=== PATIENT | male | born 1970 | race American Indian/Alaskan Native ===

== ENCOUNTER 2017-10-12 10:54 | Emergency (ER) | payer MEDICAID ==
[2017-10-12 11:00] VITALS: BP 168/102
--- NOTE | 2017-10-12 12:19 | Emergency Department Report ---
ED Medical Clearance HPI - General Chief complaint: Medical Clearance Stated complaint: HYPERTENSION Time Seen by Provider: 10/12/17 12:12 Source: patient Mode of arrival: Ambulatory - History of Present Illness Initial comments: 46-year-old male past medical history hypertension presents for medication refill. Patient states he ran out of his amlodipine a week ago. Patient is awake alert and oriented 3 fully lucid nontoxic-appearing. Denies any chest pain palpitations shortness of breath headache blurry vision abdominal pain nausea vomiting up her lower extremity paresthesias headache. Patient states he also has small bumpy rash on the left anterior macdonald. Has had it for several weeks. Denies any fevers chills or trauma to area. MD Complaint: medical clearance request Onset/Timin -: week(s) Place: home Treatments Prior to Arrival: medication Home medications: Previous Rx's Medication Instructions Recorded Last Taken Type Mupirocin [Bactroban 2% CREAM] 1 applicatio TP TID #1 cream 10/12/17 Unknown Rx amLODIPine [Norvasc] 10 mg PO DAILY #30 tab 10/12/17 Unknown Rx Allergies/Adverse reactions: Allergies Allergy/AdvReac Type Severity Reaction Status Date / Time olanzapine [From Zyprexa] AdvReac Unknown Verified 10/12/17 11:01 risperidone [From Risperdal] AdvReac Unknown Verified 10/12/17 11:00 ziprasidone [From Geodon] AdvReac Unknown Verified 10/12/17 11:00 ED Review of Systems ROS: Stated complaint: HYPERTENSION Other details as noted in HPI Constitutional: denies: chills, fever Eyes: denies: eye pain, eye discharge, vision change ENT: denies: ear pain, throat pain Respiratory: denies: cough, shortness of breath, wheezing Cardiovascular: denies: chest pain, palpitations Endocrine: no symptoms reported Gastrointestinal: denies: abdominal pain, nausea, diarrhea Genitourinary: denies: urgency, dysuria Musculoskeletal: denies: back pain, joint swelling, arthralgia Skin: as per HPI, rash. denies: lesions Neurological: denies: headache, weakness, paresthesias Psychiatric: denies: anxiety, depression Hematological/Lymphatic: denies: easy bleeding, easy bruising ED Past Medical Hx - Past Medical History Hx Hypertension: Yes - Surgical History Past Surgical History?: No - Social History Smoking Status: Former Smoker - Medications Home Medications: Home Medications Medication Instructions Recorded Confirmed Last Taken Type Mupirocin [Bactroban 2% CREAM] 1 applicatio TP TID #1 cream 10/12/17 Unknown Rx amLODIPine [Norvasc] 10 mg PO DAILY #30 tab 10/12/17 Unknown Rx ED Physical Exam - General Limitations: No Limitations General appearance: alert, in no apparent distress - Head Head exam: Present: atraumatic, normocephalic - Eye Eye exam: Present: normal appearance, PERRL, EOMI - ENT ENT exam: Present: mucous membranes moist - Neck Neck exam: Present: normal inspection - Respiratory Respiratory exam: Present: normal lung sounds bilaterally. Absent: respiratory distress - Cardiovascular Cardiovascular Exam: Present: regular rate, normal rhythm. Absent: systolic murmur, diastolic murmur, rubs, gallop - GI/Abdominal GI/Abdominal exam: Present: soft, normal bowel sounds - Rectal Rectal exam: Present: deferred - Extremities Exam Extremities exam: Present: normal inspection - Back Exam Back exam: Present: normal inspection - Neurological Exam Neurological exam: Present: alert, oriented X3 - Psychiatric Psychiatric exam: Present: normal affect, normal mood - Skin Skin exam: Present: warm, dry, intact, normal color. Absent: rash - Expanded Skin Exam Expanded Description of rash: Present: papular (small area of folliculitis left anterior macdonald erythema cellulitis or abscess. Area 2 cm) ED Course Vital Signs 10/12/17 10:57 Temperature 98.2 F Pulse Rate 62 Respiratory 16 Rate Blood Pressure 168/102 O2 Sat by Pulse 98 Oximetry ED Medical Decision Making - Medical Decision Making A/P: Medication refill, folliculitis 1-refill on amlodipine. I stressed to the patient that he needs to follow up with primary care. Patient states he has insurance but has not made that time to follow up with primary care doctor. Patient is asymptomatic with no signs or history suggestive of of hypertensive urgency/emergency at this time 2-topical [facility] since a small area of folliculitis left anterior macdonald 3-follow up with PMD 4- as per ACEP guidelines pt has no sx's no futher intervention necessary at this time ED Disposition Clinical Impression: Asymptomatic hypertension, Folliculitis Disposition: TO HOME OR SELFCARE Is pt being admited?: No Does the pt Need Aspirin: No Condition: Stable Instructions: Hypertension (ED), Folliculitis (ED) Prescriptions: amLODIPine [Norvasc] 10 mg PO DAILY #30 tab Mupirocin [Bactroban 2% CREAM] 1 applicatio TP TID #1 cream Referrals: [facility] [Provider Group] - 3-5 Days [facility] [Outside] - 3-5 Days Time of Disposition: 12:20
== END 2017-10-12 12:29 | disposition home or self-care (01) ==
LOC: ED 10:54
DX: L73.9 Follicular disorder, unspecified (principal); I10 Essential (primary) hypertension
CPT/HCPCS: 99281

== ENCOUNTER 2018-05-17 00:31 | Emergency (ER) | payer MEDICAID ==
[2018-05-17 01:29] VITALS: BP 157/97
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
== END 2018-05-17 04:00 | disposition home or self-care (01) ==
LOC: ED 00:31
DX: K21.9 Gastro-esophageal reflux disease without esophagitis (principal); M79.674 Pain in right toe(s); I10 Essential (primary) hypertension; F20.9 Schizophrenia, unspecified; F17.200 Nicotine dependence, unspecified, uncomplicated; Z76.0 Encounter for issue of repeat prescription; Z88.2 Allergy status to sulfonamides; Z88.8 Allergy status to other drugs, medicaments and biological substances
CPT/HCPCS: 99281

== ENCOUNTER 2018-05-27 05:24 | Emergency (ER) | payer MEDICAID | END 2018-05-27 05:30 | disposition left against medical advice (07) | LOC: ED 05:24 ==

== ENCOUNTER 2018-05-31 03:13 | Emergency (ER) | payer MEDICAID | END 2018-05-31 09:03 | LOC: ED 03:13 | DX: Z53.21 Procedure and treatment not carried out due to patient leaving prior to being seen by health care provider (principal) ==

== ENCOUNTER 2018-06-06 00:09 | Emergency (ER) | payer MEDICAID ==
[2018-06-06 00:16] VITALS: BP 159/96
[2018-06-06 00:35] LABS: Bilirubin,Urine NEG (Negative); Blood,Urine NEG (Negative); Color,Urine Yellow (Yellow); Protein,Urine <15 mg/dL mg/dL (Negative); WBC,Urine < 1.0 /HPF (0.0-6.0)
--- NOTE | 2018-06-06 01:17 | Emergency Department Report ---
ED General Adult HPI - General Chief complaint: Pain General Stated complaint: PEE A LOT Time Seen by Provider: 06/06/18 01:10 Source: patient Mode of arrival: Ambulatory Limitations: No Limitations - History of Present Illness Initial comments: 47-year-old male that comes in chronically for right great toe pain. Patient reports that his throat pain is worse when he walks but admits that he walks constantly throughout the day. Patient also comes in reporting that he needs a refill on his medication. Patient reports that he is pain a lot. Patient reports that he was followed up by urology but comes in because he has ran out of his stitch for pain. Improves with: rest Worsens with: other ( walking) - Related Data Previous Rx's Medication Instructions Recorded Last Taken Type Mupirocin [Bactroban 2% CREAM] 1 applicatio TP TID #1 cream 10/12/17 Unknown Rx Mupirocin [Bactroban 2% OINT] 1 applic TP TID #1 tube 10/12/17 Unknown Rx amLODIPine [Norvasc] 10 mg PO DAILY #30 tab 10/12/17 Unknown Rx Ibuprofen [Motrin] 400 mg PO Q8H #20 tablet 05/09/18 Unknown Rx Omeprazole 40 mg PO DAILY #30 capsule.dr 05/17/18 Unknown Rx Ketorolac [Toradol] 10 mg PO Q6H PRN #20 tablet 06/06/18 Unknown Rx Oxybutynin Chloride [Ditropan Xl] 5 mg PO DAILY #30 tab.er.24 06/06/18 Unknown Rx Allergies Allergy/AdvReac Type Severity Reaction Status Date / Time amlodipine [From Norvasc] Allergy Unknown Verified 06/06/18 00:14 olanzapine [From Zyprexa] AdvReac Unknown Verified 05/18/18 00:47 risperidone [From Risperdal] AdvReac Unknown Verified 05/18/18 00:47 ziprasidone [From Geodon] AdvReac Unknown Verified 05/18/18 00:47 ED Review of Systems ROS: Stated complaint: PEE A LOT Other details as noted in HPI ED Past Medical Hx - Past Medical History Previous Medical History?: Yes Hx Hypertension: Yes (medication controlled) Hx Psychiatric Treatment: (denies schizophrenia) - Surgical History Past Surgical History?: Yes Additional Surgical History: right knee - Social History Smoking Status: Current Every Day Smoker - Medications Home Medications: Home Medications Medication Instructions Recorded Confirmed Last Taken Type Mupirocin [Bactroban 2% CREAM] 1 applicatio TP TID #1 cream 10/12/17 Unknown Rx Mupirocin [Bactroban 2% OINT] 1 applic TP TID #1 tube 10/12/17 Unknown Rx amLODIPine [Norvasc] 10 mg PO DAILY #30 tab 10/12/17 Unknown Rx Ibuprofen [Motrin] 400 mg PO Q8H #20 tablet 05/09/18 Unknown Rx Omeprazole 40 mg PO DAILY #30 capsule.dr 05/17/18 Unknown Rx Ketorolac [Toradol] 10 mg PO Q6H PRN #20 tablet 06/06/18 Unknown Rx Oxybutynin Chloride [Ditropan Xl] 5 mg PO DAILY #30 tab.er.24 06/06/18 Unknown Rx ED Physical Exam - General Limitations: No Limitations General appearance: alert, in no apparent distress - Head Head exam: Present: atraumatic, normocephalic - ENT ENT exam: Present: mucous membranes moist - Neurological Exam Neurological exam: Present: alert, oriented X3 - Psychiatric Psychiatric exam: Present: normal affect, normal mood - Skin Skin exam: Present: warm, dry, intact. Absent: rash ED Course Vital Signs 06/06/18 00:13 Temperature 97.8 F Pulse Rate 81 Respiratory 18 Rate Blood Pressure 159/96 O2 Sat by Pulse 98 Oximetry ED Medical Decision Making - Medical Decision Making Patient has been evaluated by this provider in fast track. Patient be refilled on his digits or pain referred back to his urologist for future evaluations and refills. Refill patient's medication for his pain with Toradol 10 mg. I discussed the patient if he keeps on walking on his feet constantly is going to continue to have pain. She verbalized understanding Critical care attestation.: If time is entered above; I have spent that time in minutes in the direct care of this critically ill patient, excluding procedure time. ED Disposition Clinical Impression: Urinary frequency Disposition: DC-01 TO HOME OR SELFCARE Is pt being admited?: No Does the pt Need Aspirin: No Condition: Stable Additional Instructions: Please take medication as prescribed. Please follow-up with your urologist for further refills evaluation. Prescriptions: Ketorolac [Toradol] 10 mg PO Q6H PRN #20 tablet PRN Reason: Pain Oxybutynin Chloride [Ditropan Xl] 5 mg PO DAILY #30 tab.er.24 Referrals: GREGG ADAMS MD [Primary Care Provider] - 3-5 Days AMELIA WOLFF MD [Staff Physician] - 3-5 Days
== END 2018-06-06 01:30 | disposition home or self-care (01) ==
LOC: ED 00:09
DX: R35.0 Frequency of micturition (principal); I10 Essential (primary) hypertension; F17.200 Nicotine dependence, unspecified, uncomplicated; Z88.8 Allergy status to other drugs, medicaments and biological substances
CPT/HCPCS: 81001; 99283

== ENCOUNTER 2018-06-06 19:40 | Emergency (ER) | payer MEDICAID ==
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
== END 2018-06-07 00:35 | disposition home or self-care (01) ==
LOC: ED 19:40

== ENCOUNTER 2018-06-14 21:29 | Emergency (ER) | payer MEDICAID ==
--- NOTE | 2018-06-14 22:01 | Emergency Department Report ---
Chief Complaint: Upper Respiratory Infection Stated Complaint: MED REFILL Time Seen by Provider: 06/14/18 22:00 - HPI History of Present Illness: Patient here reported that he had cough for 2 months after smoking marijuana. Denies any nasal congestion or runny nose is thick cough is nonproductive. Denies any shortness of breath or chest pain. Denies any headache or neck pain. 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 Pain is 0-10. Denies any fever or chills or nausea or vomiting. - ROS Review of Systems: Positive requests for sack lunch, positive request a Band-Aid without any injuries. Negative shortness of breath, negative chest pain, negative fever or chills. Pain 0/10. Denies cough and but reports to triage nurse that he was coughing for 2 months. Negative headache, sore throats. Negative back or neck pain or. Negative abdominal pain - Exam Vital Signs: Vital Signs 06/14/18 21:34 Temperature 97.7 F Pulse Rate 87 Respiratory 16 Rate Blood Pressure 127/95 O2 Sat by Pulse 100 Oximetry Physical Exam: Gen.: This is a 47-year-old male well-nourished well-developed in no acute distress. CV: S1, S2. Regular rate and rhythm negative murmur Lungs: Clear to auscultate bilaterally, no rhonchi wheezes or rales. Skin: Clean, Dry and intact and no rash no lesions EXT: No C/C/E + 2 pulses MSE screening note: Focused history and physical exam performed. Due to findings the following was ordered: Patient's deemed to be not medical emergent and was screening doubts and given outpatient resources for follow-up. He said all he wants is a sack lunch and a Band-Aid. I discussed with him that this is not a medical emergency and he was DC'd from emergency room. Patient discussed with doctor:: SANDEEP STRICKLAND ED Medical Decision Making - Medical Decision Making This is a 47-year-old male who comes to the emergency room accident for Band-Aid and sack lunch. He told triage nurse that he had a cough which was nonproductive 2 months but when he came back and I was interviewing him he said he is here for about lunch and Band-Aid. I discussed the patient that this is not a medical emergency and gave him community resources to access. Discharged from emergency room. Patient vital signs stable and is afebrile and in no acute distress. ED Disposition for MSE Clinical Impression: Normal exam Disposition: MED SCREENING EXAM-LEFT Is pt being admited?: No Does the pt Need Aspirin: No Condition: Stable Referrals: SID THAKKAR DO [Primary Care Provider] - 3-5 Days
== END 2018-06-14 22:12 | disposition left against medical advice (07) ==
LOC: ED 21:29
CPT/HCPCS: 99281

== ENCOUNTER 2018-06-17 06:57 | Emergency (ER) | payer MEDICAID ==
--- NOTE | 2018-06-17 07:54 | Emergency Department Report ---
ED Lower Extremity HPI - General Chief Complaint: Extremity Problem,Nontraumatic Stated Complaint: RT FOOT SORE TOE Source: patient Mode of arrival: Ambulatory Limitations: No Limitations - Related Data Previous Rx's Medication Instructions Recorded Last Taken Type Mupirocin [Bactroban 2% CREAM] 1 applicatio TP TID #1 cream 10/12/17 Unknown Rx Mupirocin [Bactroban 2% OINT] 1 applic TP TID #1 tube 10/12/17 Unknown Rx amLODIPine [Norvasc] 10 mg PO DAILY #30 tab 10/12/17 Unknown Rx Ibuprofen [Motrin] 400 mg PO Q8H #20 tablet 05/09/18 Unknown Rx Omeprazole 40 mg PO DAILY #30 capsule.dr 05/17/18 Unknown Rx Ketorolac [Toradol] 10 mg PO Q6H PRN #20 tablet 06/06/18 Unknown Rx Oxybutynin Chloride [Ditropan Xl] 5 mg PO DAILY #30 tab.er.24 06/06/18 Unknown Rx Allergies Allergy/AdvReac Type Severity Reaction Status Date / Time amlodipine [From Norvasc] Allergy Unknown Verified 06/06/18 00:14 olanzapine [From Zyprexa] AdvReac Unknown Verified 05/18/18 00:47 risperidone [From Risperdal] AdvReac Unknown Verified 05/18/18 00:47 ziprasidone [From Geodon] AdvReac Unknown Verified 05/18/18 00:47 ED Review of Systems ROS: Stated complaint: RT FOOT SORE TOE Other details as noted in HPI ED Past Medical Hx - Past Medical History Previous Medical History?: Yes Hx Hypertension: Yes (medication controlled) Hx Psychiatric Treatment: (denies schizophrenia) - Surgical History Past Surgical History?: Yes Additional Surgical History: right knee - Social History Smoking Status: Current Every Day Smoker Substance Use Type: Alcohol, Marijuana - Medications Home Medications: Home Medications Medication Instructions Recorded Confirmed Last Taken Type Mupirocin [Bactroban 2% CREAM] 1 applicatio TP TID #1 cream 10/12/17 Unknown Rx Mupirocin [Bactroban 2% OINT] 1 applic TP TID #1 tube 10/12/17 Unknown Rx amLODIPine [Norvasc] 10 mg PO DAILY #30 tab 10/12/17 Unknown Rx Ibuprofen [Motrin] 400 mg PO Q8H #20 tablet 05/09/18 Unknown Rx Omeprazole 40 mg PO DAILY #30 capsule. 05/17/18 Unknown Rx Ketorolac [Toradol] 10 mg PO Q6H PRN #20 tablet 06/06/18 Unknown Rx Oxybutynin Chloride [Ditropan Xl] 5 mg PO DAILY #30 tab.er.24 06/06/18 Unknown Rx ED Physical Exam - General Limitations: No Limitations ED Course Vital Signs 06/17/18 07:15 Temperature 98.6 F Pulse Rate 69 Respiratory 18 Rate Blood Pressure 140/97 O2 Sat by Pulse 99 Oximetry Critical care attestation.: If time is entered above; I have spent that time in minutes in the direct care of this critically ill patient, excluding procedure time. ED Disposition Clinical Impression: Normal exam, Pain around toenail, right foot Disposition: DC-01 TO HOME OR SELFCARE Is pt being admited?: No Does the pt Need Aspirin: No Condition: Stable Referrals: CALIN BARAHONA [Primary Care Provider] - 3-5 Days Time of Disposition: 07:54
--- NOTE | 2018-06-17 07:56 | Emergency Department Report ---
Chief Complaint: Extremity Problem,Nontraumatic Stated Complaint: RT FOOT SORE TOE - HPI History of Present Illness: This is a 47-year-old -Russian male who presents to the emergency room for a band aid for right great toe. Patient states he come to the emergency room frequently for toe pain. Patient states his toenails are rubbing against the top of his shoe and caused some pain. He can't afford to purchase Band-Aids so he comes to the emergency room for assistance. He reports pain is worse with walking. He does not have transportation and walks quite frequently. Patient denies recent injury. Patient was seen a few weeks here in this emergency room with similar complaint. - ROS Review of Systems: Right toe pain right first toenail pain. - Exam Vital Signs: Vital Signs 06/17/18 07:15 Temperature 98.6 F Pulse Rate 69 Respiratory 18 Rate Blood Pressure 140/97 O2 Sat by Pulse 99 Oximetry Physical Exam: Alert and oriented. Normal gait. Extremity: right 1st toe nail is dark, thick, and brittle, no erythema or edema. MSE screening note: Focused history and physical exam performed. Due to findings the following was ordered: Patient had a medical screening exam. Discussed options of where to purchase Band-Aids. Instructed to follow-up with primary care provider. ED Disposition for MSE Clinical Impression: Normal exam, Pain around toenail, right foot Disposition: - TO HOME OR SELFCARE Condition: Stable Referrals: CALIN BARAHONA [Primary Care Provider] - 3-5 Days
== END 2018-06-17 07:58 | disposition home or self-care (01) ==
LOC: ED 06:57
DX: M79.674 Pain in right toe(s) (principal)
CPT/HCPCS: 99282

== ENCOUNTER 2018-06-20 04:47 | Emergency (ER) | payer MEDICAID ==
[2018-06-20] MEDS ORDERED: ASPIRIN PO ONE (05:04)
[2018-06-20 05:28] LABS: Basophils % (Auto) 0.7 % (0.0-1.8); Eosinophils # (Auto) 0.3 K/mm3 (0.0-0.4); Eosinophils % (Auto) 5.3 % (0.0-4.3); Hematocrit 48.6 % (35.5-45.6); Hemoglobin 16.4 gm/dl (11.8-15.2); Lymphocytes # (Auto) 1.5 K/mm3 (1.2-5.4); Lymphocytes % (Auto) 30.6 % (13.4-35.0); Mean Corpuscular HGB Conc 34 % (32-34); Mean Corpuscular Volume 90 fl (84-94); Monocytes # (Auto) 0.6 K/mm3 (0.0-0.8); Platelet Count 249 K/mm3 (140-440); Red Blood Count 5.39 M/mm3 (3.65-5.03); Red Cell Distribution Width 13.8 % (13.2-15.2)
[2018-06-20 05:46] LABS: BUN/Creatinine Ratio 10; Blood Urea Nitrogen 11 mg/dL (9-20); Calcium 8.6 mg/dL (8.4-10.2); Hemolysis Index 20
--- NOTE | 2018-06-20 06:53 | Emergency Department Report ---
ED General Adult HPI - General Chief complaint: Chest Pain Stated complaint: HBP MEDICATION Time Seen by Provider: 06/20/18 05:44 Source: patient Mode of arrival: Ambulatory Limitations: No Limitations - History of Present Illness Initial comments: 47-year-old -Q[place] male has medical history of hypertension which the reports been noncompliant for the past 3-4 days presents to the emergency department of a rash to his right and left lower extremity which she states she's had for several months as been waxing and waning with utilization of some medicated ointment. He's been unable to maintain. The rash is pruritic in nature without associated fever, chills, sweats. Does also admits to smoking some weed tonight and after doing so, he developed a cough which makes him having some sharp pains in his left chest, primarily with deep breath and coughing spells. Denies any shortness of breath, presyncope, nausea, vomiting, diarrhea, coryza, but has had some yellowish mucus production with this cough. Radiation: non-radiation Quality: aching, sharp Consistency: intermittent Improves with: none Worsens with: other (coughing spells) Associated Symptoms: cough. denies: confusion, shortness of breath, syncope, weakness - Related Data Previous Rx's Medication Instructions Recorded Last Taken Type Mupirocin [Bactroban 2% CREAM] 1 applicatio TP TID #1 cream 10/12/17 Unknown Rx Mupirocin [Bactroban 2% OINT] 1 applic TP TID #1 tube 10/12/17 Unknown Rx amLODIPine [Norvasc] 10 mg PO DAILY #30 tab 10/12/17 Unknown Rx Ibuprofen [Motrin] 400 mg PO Q8H #20 tablet 05/09/18 Unknown Rx Omeprazole 40 mg PO DAILY #30 capsule.dr 05/17/18 Unknown Rx Ketorolac [Toradol] 10 mg PO Q6H PRN #20 tablet 06/06/18 Unknown Rx Oxybutynin Chloride [Ditropan Xl] 5 mg PO DAILY #30 tab.er.24 06/06/18 Unknown Rx Mometasone Furoate [Elocon] 45 gm TP BID #1 cream..g. 06/20/18 Unknown Rx hydrOXYzine HCL [Atarax] 25 mg PO Q6HR PRN #20 tablet 06/20/18 Unknown Rx Allergies Allergy/AdvReac Type Severity Reaction Status Date / Time olanzapine [From Zyprexa] AdvReac Unknown Verified 05/18/18 00:47 risperidone [From Risperdal] AdvReac Unknown Verified 05/18/18 00:47 ziprasidone [From Geodon] AdvReac Unknown Verified 05/18/18 00:47 ED Review of Systems ROS: Stated complaint: HBP MEDICATION Other details as noted in HPI Constitutional: denies: chills, fever Eyes: denies: eye pain, eye discharge, vision change ENT: denies: ear pain, throat pain Respiratory: cough. denies: shortness of breath, wheezing Cardiovascular: denies: palpitations, dyspnea on exertion, orthopnea, syncope, paroxysmal nocturnal dyspnea Endocrine: no symptoms reported Gastrointestinal: denies: abdominal pain, nausea, diarrhea Genitourinary: denies: urgency, dysuria Musculoskeletal: denies: back pain, joint swelling, arthralgia Skin: rash. denies: lesions Neurological: denies: headache, weakness, paresthesias Psychiatric: denies: anxiety, depression Hematological/Lymphatic: denies: easy bleeding, easy bruising ED Past Medical Hx - Past Medical History Previous Medical History?: Yes Hx Hypertension: Yes (medication controlled) Hx Psychiatric Treatment: (denies schizophrenia) - Surgical History Past Surgical History?: Yes Additional Surgical History: right knee - Social History Smoking Status: Current Every Day Smoker Substance Use Type: Alcohol, Marijuana - Medications Home Medications: Home Medications Medication Instructions Recorded Confirmed Last Taken Type Mupirocin [Bactroban 2% CREAM] 1 applicatio TP TID #1 cream 10/12/17 Unknown Rx Mupirocin [Bactroban 2% OINT] 1 applic TP TID #1 tube 10/12/17 Unknown Rx amLODIPine [Norvasc] 10 mg PO DAILY #30 tab 10/12/17 Unknown Rx Ibuprofen [Motrin] 400 mg PO Q8H #20 tablet 05/09/18 Unknown Rx Omeprazole 40 mg PO DAILY #30 capsule.dr 05/17/18 Unknown Rx Ketorolac [Toradol] 10 mg PO Q6H PRN #20 tablet 06/06/18 Unknown Rx Oxybutynin Chloride [Ditropan Xl] 5 mg PO DAILY #30 tab.er.24 06/06/18 Unknown Rx Mometasone Furoate [Elocon] 45 gm TP BID #1 cream..g. 06/20/18 Unknown Rx hydrOXYzine HCL [Atarax] 25 mg PO Q6HR PRN #20 tablet 06/20/18 Unknown Rx ED Physical Exam - General Limitations: No Limitations General appearance: alert, in no apparent distress - Head Head exam: Present: atraumatic, normocephalic - Eye Eye exam: Present: normal appearance, PERRL, EOMI Pupils: Present: normal accommodation - ENT ENT exam: Present: normal exam, normal orophraynx, mucous membranes moist - Neck Neck exam: Present: normal inspection, full ROM - Respiratory Respiratory exam: Present: normal lung sounds bilaterally. Absent: respiratory distress, wheezes, rales, stridor, chest wall tenderness, accessory muscle use, decreased breath sounds - Cardiovascular Cardiovascular Exam: Present: regular rate, normal rhythm. Absent: systolic murmur, diastolic murmur, rubs, gallop - GI/Abdominal GI/Abdominal exam: Present: soft, normal bowel sounds. Absent: tenderness, guarding, hypoactive bowel sounds, organomegaly, mass, bruit, pulsatile mass - Rectal Rectal exam: Present: deferred - Extremities Exam Extremities exam: Present: normal inspection - Back Exam Back exam: Present: normal inspection - Neurological Exam Neurological exam: Present: alert, oriented X3, CN II-XII intact - Psychiatric Psychiatric exam: Present: normal affect, normal mood - Skin Skin exam: Present: warm, dry, intact, normal color, rash (hyperpigmented, scaly rash to the plaque-like to the left lower extremity and right lower extremity in the area of the anterior macdonald) ED Course Vital Signs 06/20/18 04:55 Temperature 97.7 F Pulse Rate 69 Respiratory 18 Rate Blood Pressure 143/97 ED Medical Decision Making - Lab Data Result diagrams: 06/20/18 05:13 06/20/18 05:13 Critical care attestation.: If time is entered above; I have spent that time in minutes in the direct care of this critically ill patient, excluding procedure time. ED Disposition Clinical Impression: Rash and nonspecific skin eruption, Cough, Non compliance w medication regimen Disposition: TO HOME OR SELFCARE Is pt being admited?: No Does the pt Need Aspirin: No Condition: Stable Instructions: Acute Rash (ED), Noncardiac Chest Pain (ED) Additional Instructions: Return to emergency department should her chest, chest pain, worsening Urispas any fever, coughing up blood, shortness of breath, lower extremity symptoms to s uggest her condition is worsening. 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
[2018-06-20 07:07] VITALS: BP 140/91
== END 2018-06-20 07:06 | disposition home or self-care (01) ==
LOC: ED 04:47
DX: R21 Rash and other nonspecific skin eruption (principal); R05 Cough; Z91.14 Patient's other noncompliance with medication regimen; I10 Essential (primary) hypertension; F20.9 Schizophrenia, unspecified; F17.200 Nicotine dependence, unspecified, uncomplicated; F12.10 Cannabis abuse, uncomplicated; Z88.0 Allergy status to penicillin
CPT/HCPCS: 36415; 80048; 84484; 85025; 93005; 93010

== ENCOUNTER → 2018-06-25 20:32 | Emergency (ER) | payer MEDICAID | END | disposition left against medical advice (07) | LOC: ED 20:32 | DX: R07.89 Other chest pain (principal); Z53.21 Procedure and treatment not carried out due to patient leaving prior to being seen by health care provider | CPT/HCPCS: 93005; 93010 ==

== ENCOUNTER 2018-07-04 04:24 | Emergency (ER) | payer MEDICAID ==
--- NOTE | 2018-07-04 05:42 | Emergency Department Report ---
Chief Complaint: Urogenital-Male Stated Complaint: ITCHING AND BURNING URINATION Time Seen by Provider: 07/04/18 05:37 - HPI History of Present Illness: 47-year-old -Bel[place]ian male comes in for itching and burning with BM for several months. Patient was seen here every week and has never said anything about this. Patient has a primary care provider and has not followed up. Patient denies any blood in stools. - Exam Vital Signs: Vital Signs 07/04/18 04:30 Temperature 98.7 F Pulse Rate 71 Respiratory 16 Rate Blood Pressure 122/78 O2 Sat by Pulse 99 Oximetry Physical Exam: Gen: alert oriented NAD Crainal nerve II-IIX intact Ambulatory without difficulties. MSE screening note: Focused history and physical exam performed. Due to findings the following was ordered: Patient is to follow-up with his primary care provider as he has had a medical screening exam. ED Medical Decision Making - Medical Decision Making Patient has been evaluated by this provider in fast track. Discussed with patient he can get [id number] tucks pads to clean his rectum area. Discussed the patient to follow up with his primary care provider as this is not considered an emergency. ED Disposition for MSE Clinical Impression: Rectal itching Disposition: DC-01 TO HOME OR SELFCARE Is pt being admited?: No Does the pt Need Aspirin: No Condition: Stable Additional Instructions: Patient is to get [id number] Tucks pads to apply to his rectal area. Use as directed. He is to follow-up with his primary care provider. Referrals: NAHUM JOHNSON MD [Primary Care Provider] - 3-5 Days
== END 2018-07-04 05:40 | disposition home or self-care (01) ==
LOC: ED 04:24
CPT/HCPCS: 99281

== ENCOUNTER 2018-07-05 04:39 | Emergency (ER) | payer MEDICAID | END 2018-07-05 06:51 | disposition left against medical advice (07) | LOC: ED 04:39 ==

== ENCOUNTER 2018-07-10 23:58 | Emergency (ER) | payer MEDICAID ==
--- NOTE | 2018-07-11 04:01 | Emergency Department Report ---
ED Recheck HPI - General Chief Complaint: Medical Clearance Stated Complaint: PRESCRIPTION REFILLS Source: patient Mode of arrival: Ambulatory Limitations: No Limitations - History of Present Illness Initial Comments: This is a 47-year-old after Fijian male who presents for medication refills. Past medical history of hypertension and eczema. Patient states he ran out of Norvasc and triamcinolone. He is currently having a flare to the left lower extremity really any triamcinolone refilled. He denies any other symptoms. Patient denies shortness of breath, chest pain, visual changes, swelling, or erythema. MD Complaint: medication refill request Onset/Timin -: days(s) Returns Today for: request for prescription Symptoms Since Prior Visit: no new symptoms Context: ran out of medication Associated Symptoms: rash - Related Data Previous Rx's Medication Instructions Recorded Last Taken Type Mupirocin [Bactroban 2% CREAM] 1 applicatio TP TID #1 cream 10/12/17 Unknown Rx Mupirocin [Bactroban 2% OINT] 1 applic TP TID #1 tube 10/12/17 Unknown Rx amLODIPine [Norvasc] 10 mg PO DAILY #30 tab 10/12/17 Unknown Rx Ibuprofen [Motrin] 400 mg PO Q8H #20 tablet 05/09/18 Unknown Rx Omeprazole 40 mg PO DAILY #30 capsule.dr 05/17/18 Unknown Rx Ketorolac [Toradol] 10 mg PO Q6H PRN #20 tablet 06/06/18 Unknown Rx Oxybutynin Chloride [Ditropan Xl] 5 mg PO DAILY #30 tab.er.24 06/06/18 Unknown Rx Mometasone Furoate [Elocon] 45 gm TP BID #1 cream..g. 06/20/18 Unknown Rx hydrOXYzine HCL [Atarax] 25 mg PO Q6HR PRN #20 tablet 06/20/18 Unknown Rx Amlodipine Besylate [Norvasc] 10 mg PO DAILY #30 tablet 07/11/18 Unknown Rx Triamcinolone 0.1% [Kenalog 0.1% 1 applic TP TID #1 tube 07/11/18 Unknown Rx CREAM] Allergies Allergy/AdvReac Type Severity Reaction Status Date / Time olanzapine [From Zyprexa] AdvReac Unknown Verified 05/18/18 00:47 risperidone [From Risperdal] AdvReac Unknown Verified 05/18/18 00:47 ziprasidone [From Geodon] AdvReac Unknown Verified 05/18/18 00:47 ED Review of Systems ROS: Stated complaint: PRESCRIPTION REFILLS Other details as noted in HPI Constitutional: denies: chills, fever Respiratory: denies: cough, shortness of breath, wheezing Cardiovascular: denies: chest pain, palpitations Gastrointestinal: denies: abdominal pain, nausea, diarrhea Skin: rash (left lower extremity). denies: lesions Neurological: denies: headache, weakness, paresthesias Psychiatric: denies: anxiety, depression ED Past Medical Hx - Past Medical History Hx Hypertension: Yes (medication controlled) Hx Psychiatric Treatment: (denies schizophrenia) - Surgical History Additional Surgical History: right knee - Social History Smoking Status: Current Every Day Smoker Substance Use Type: None - Medications Home Medications: Home Medications Medication Instructions Recorded Confirmed Last Taken Type Mupirocin [Bactroban 2% CREAM] 1 applicatio TP TID #1 cream 10/12/17 Unknown Rx Mupirocin [Bactroban 2% OINT] 1 applic TP TID #1 tube 10/12/17 Unknown Rx amLODIPine [Norvasc] 10 mg PO DAILY #30 tab 10/12/17 Unknown Rx Ibuprofen [Motrin] 400 mg PO Q8H #20 tablet 05/09/18 Unknown Rx Omeprazole 40 mg PO DAILY #30 capsule.dr 05/17/18 Unknown Rx Ketorolac [Toradol] 10 mg PO Q6H PRN #20 tablet 06/06/18 Unknown Rx Oxybutynin Chloride [Ditropan Xl] 5 mg PO DAILY #30 tab.er.24 06/06/18 Unknown Rx Mometasone Furoate [Elocon] 45 gm TP BID #1 cream..g. 06/20/18 Unknown Rx hydrOXYzine HCL [Atarax] 25 mg PO Q6HR PRN #20 tablet 06/20/18 Unknown Rx Amlodipine Besylate [Norvasc] 10 mg PO DAILY #30 tablet 07/11/18 Unknown Rx Triamcinolone 0.1% [Kenalog 0.1% 1 applic TP TID #1 tube 07/11/18 Unknown Rx CREAM] ED Physical Exam - General Limitations: No Limitations General appearance: alert, in no apparent distress - Respiratory Respiratory exam: Present: normal lung sounds bilaterally. Absent: respiratory distress - Cardiovascular Cardiovascular Exam: Present: regular rate, normal rhythm. Absent: systolic murmur, diastolic murmur, rubs, gallop - GI/Abdominal GI/Abdominal exam: Present: soft, normal bowel sounds - Neurological Exam Neurological exam: Present: alert, oriented X3, normal gait - Psychiatric Psychiatric exam: Present: normal affect, normal mood - Skin Skin exam: Present: warm, dry, intact, normal color, rash (scaly and crusty reddish to left lower extremity, nontender, and no erythema or swelling.) ED Course Vital Signs 07/11/18 01:08 Temperature 98.0 F Pulse Rate 62 Respiratory 18 Rate Blood Pressure 139/97 [Right] O2 Sat by Pulse 99 Oximetry ED Recheck MDM - Differential Diagnosis Prescription Refill(s) - Medical Decision Making Patient was examined by me. Vitals are normal and patient is in no acute distress. Patient presents for medication refills. Start Norvasc 10 mg by mouth daily #30 with 0 refills and triamcinolone. Referral to [facility] and the outside medical clinic for continued care. Plan discussed with patient to discharge home and treat outpatient. He agrees with ER plan. Patient discharged home in stable condition. Follow up with PCP in 2-3 days. Critical care attestation.: If time is entered above; I have spent that time in minutes in the direct care of this critically ill patient, excluding procedure time. ED Disposition Clinical Impression: Encounter for medication refill Disposition: DC-01 TO HOME OR SELFCARE Is pt being admited?: No Does the pt Need Aspirin: No Condition: Stable Instructions: Eczema (ED), Hypertension (ED) Additional Instructions: Follow-up with primary care provider for further refills. I have provided primary care providers in the referrals portion below. Prescriptions: Amlodipine Besylate [Norvasc] 10 mg PO DAILY #30 tablet Triamcinolone 0.1% [Kenalog 0.1% CREAM] 1 applic TP TID #1 tube Referrals: CALIN BARAHONA [Primary Care Provider] - 3-5 Days [facility] [Outside] - 3-5 Days [facility] [Outside] - 3-5 Days [facility] [Outside] - 3-5 Days Time of Disposition: 04:02
== END 2018-07-11 04:18 | disposition home or self-care (01) ==
LOC: ED 23:58
CPT/HCPCS: 99282

== ENCOUNTER 2018-07-14 21:28 | Emergency (ER) | payer MEDICAID | END 2018-07-14 21:40 | disposition left against medical advice (07) | LOC: ED 21:28 ==

== ENCOUNTER 2018-07-17 04:31 | Emergency (ER) | payer MEDICAID | END 2018-07-17 08:17 | disposition left against medical advice (07) | LOC: ED 04:31 ==